=== PATIENT | female | born 2000 | race Asian ===

== ENCOUNTER 2020-03-30 18:07 | Emergency (ER) | payer SELFPAY ==
[~2020-03-30] VITALS: Ht 157.5 cm; Wt 54.4 kg
[2020-03-30 18:07] VITALS: BP 94/60
[2020-03-30] MEDS ORDERED: TDAP [DIPH/PERTUSSIS/TET] 0.5 ML VIAL IM ONE ×2 (18:30→18:40)
[2020-03-30] MEDS ORDERED: LIDOCAINE HCL/MPF 1% 30 ML VIAL IJ ONE (18:40)
== END 2020-03-30 19:13 | disposition home or self-care (01) ==
LOC: ER 18:14
DX: S61.215A Laceration without foreign body of left ring finger without damage to nail, initial encounter (principal); W26.0XXA Contact with knife, initial encounter; Y93.89 Activity, other specified; Y92.89 Other specified places as the place of occurrence of the external cause; Y99.8 Other external cause status
CPT/HCPCS: 12001; 90471; 90715; 99283; A6403; J3490

== ENCOUNTER 2020-04-01 15:26 | Emergency (ER) | payer SELFPAY ==
[~2020-04-01] VITALS: Ht 157.5 cm; Wt 54.9 kg
[2020-04-01 15:46] VITALS: BP 91/60
== END 2020-04-01 16:34 | disposition home or self-care (01) ==
LOC: ER 15:26
DX: S61.215D Laceration without foreign body of left ring finger without damage to nail, subsequent encounter (principal); W45.8XXD Other foreign body or object entering through skin, subsequent encounter

== ENCOUNTER 2020-04-06 18:53 | Emergency (ER) | payer SELFPAY ==
[~2020-04-06] VITALS: Ht 157.5 cm; Wt 56.7 kg
[2020-04-06 19:09] VITALS: BP 101/52
--- NOTE | 2020-04-06 19:27 | NUR ---
Patient discharged to home in stable condition. Written and verbal after care instructions given. Patient verbalizes understanding of instruction.
== END 2020-04-06 19:27 | disposition home or self-care (01) ==
LOC: ER 18:53
DX: S61.215D Laceration without foreign body of left ring finger without damage to nail, subsequent encounter (principal); X58.XXXD Exposure to other specified factors, subsequent encounter